=== PATIENT | male | born 2000 | race Caucasian/White ===

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

== ENCOUNTER 2020-04-05 07:38 | Emergency (ER) | payer MEDICAID, SELFPAY ==
[2020-04-05 07:39] VITALS: BP 151/57; PULSE 93; RESP 17; TEMP 36.4; O2SAT 99; BMI 41.3
--- NOTE | 2020-04-05 07:59 | ED.VISSUMM ---
- ER Visit Summary Date of Service: 04/05/20 Chief Complaint: Flea bites History of Present Illness: The patient is a [address] Phan. He reports that his dog has fleas and he is in the process of treating it. He states that he has bites to his face, neck, and arms that began 2 days ago. They itch. There is no pain. He has not taken anything for this. He denies any shortness of breath or other complaints. Physical Examination: Vitals: Stable. Afebrile. General: Well-nourished and well-developed. Head: Normocephalic atraumatic. Neck: Supple, no lymphadenopathy. No JVD. Nontender. Cardiovascular: Regular rate and rhythm. No murmurs. Respiratory: No respiratory distress. Clear to auscultation bilaterally. Abdominal: Soft, nontender, nondistended, normal bowel sounds. No guarding, rebound, or peritoneal signs. Back: Nontender. Extremities: Nontender, no edema. Skin: Multiple papules over the right side of his forehead with soft tissue swelling. There is no erythema. He has multiple excoriated papules to his upper extremities with soft tissue swelling. There is no surrounding erythema, induration, or fluctuance. No evidence of infection.. Neurologic: Alert and oriented ?3. Cranial nerves II through XII are intact. Normal strength and sensation. Psych: Normal affect. Emergency Department Course and Treatment: Patient was treated with Benadryl and prednisone. Treatment Plan: Patient will be discharged with Zyrtec and prednisone. Instructed to follow-up his primary care physician 1 to 2 days for another exam. He does understand that if he does not treat his dog that this will be a recurrent allergic reaction. Return to the emergency department for any worsening symptoms. Disposition: To home in improved and stable condition. Impression: 1. Localized allergic reaction to flea bites. This note was generated with [employer] dictation software. It may contain incorrect words, spelling, and punctuation that were not noted in review of the chart prior to signing ED Disposition - Plan for ED Patient: Instructions: ED Allergic Reaction Local Other Prescriptions: Prednisone [Deltasone] 60 mg PO DAILY #15 tablet Cetirizine HCl [Zyrtec] 10 mg PO DAILY #14 capsule Referrals: Nini Phan MD [Primary Care Provider] - 1-2 Days if not improving
== END 2020-04-05 08:38 | disposition home or self-care (01) ==
LOC: ED 08:07
PROVIDERS: Emergency Provider Emergency Medicine; PCP Pediatrics
DX: T78.40XA Allergy, unspecified, initial encounter (principal); S00.86XA Insect bite (nonvenomous) of other part of head, initial encounter; S10.96XA Insect bite of unspecified part of neck, initial encounter; S40.862A Insect bite (nonvenomous) of left upper arm, initial encounter; S40.861A Insect bite (nonvenomous) of right upper arm, initial encounter; W57.XXXA Bitten or stung by nonvenomous insect and other nonvenomous arthropods, initial encounter; Y93.9 Activity, unspecified; Y92.9 Unspecified place or not applicable; Y99.9 Unspecified external cause status; G43.909 Migraine, unspecified, not intractable, without status migrainosus; J45.909 Unspecified asthma, uncomplicated; Z72.0 Tobacco use
CPT/HCPCS: 99282

== ENCOUNTER 2021-02-26 18:34 | Emergency (ER) | payer MEDICAID, SELFPAY ==
[2021-02-26 18:36] VITALS: BP 123/67; PULSE 85; RESP 16; TEMP 36.6; O2SAT 98; BMI 37.8
--- NOTE | 2021-02-26 18:56 | RAD_ITS ---
HISTORY: Trauma, injury EXAMINATION/TECHNIQUE: XR Hand Min 3 Views: COMPARISON: None FINDINGS: BONES/JOINTS: No acute fracture or dislocation. Preservation of the joint spaces. No sclerotic or destructive changes observed. SOFT TISSUES: No soft tissue swelling or gas. No radiopaque foreign body. RAD/Hand Min 3 Views IMPRESSION: No acute bony abnormality. at 1909 Reported and signed by: Ry Powers MD Electronically Signed: Ry Powers MD at 19:07 EDT Tel , Service support ,
--- NOTE | 2021-02-26 21:29 | EX.ED.UPPERE ---
HPI History of Present Illness Chief Complaint: Upper Extremity Injury Informant: patient Occured/Mechanism Comment: Twisted while wrestling with his brother Onset/Context/Timing Onset: Today Context: Sudden Onset Timing: Continuous Quality of Pain: Burning and Stabbing Location: Right hand Worsened by: Movement Relieved by: Nothing Associated Symptoms Associated Symptoms: Negative for Parasthesia and Weakness Narrative Narrative: Patient presents with right hand injury that occurred today while wrestling with his brother. Patient states that he twisted his hand. Patient denies feeling any snapping or popping sensation. Patient describes the pain as burning and stabbing. Patient states the pain is worse with movement. Patient states nothing helps with the pain. Patient denies any paresthesias or weakness. Patient denies any other injuries. PFSH PFSH Home Medications NK 02/26/21 [History Last Taken Unknown] Allergy/AdvReac Type Severity Reaction Status Date / Time amoxicillin trihydrate Allergy Hives Verified 02/26/21 18:35 [From Augmentin] Penicillins Allergy Hives Verified 02/26/21 18:35 potassium clavulanate Allergy Hives Verified 02/26/21 18:35 [From Augmentin] Surgical History (Updated 02/26/21 @ 23:[address] Christiano Wilson DO) History of tonsillectomy Social History Smoking Status: Current every day smoker tobacco type: cigarettes ROS ROS ED Constitutional Constitutional ED: Denies chills or fever(s) Eyes Eyes: Denies blurry vision or change in vision ENT ENT ED: Denies rhinorrhea or sore throat Cardiovascular Cardiovascular: Denies chest pain or palpitations Respiratory/Chest Respiratory/Chest: Denies cough or dyspnea Gastrointestinal Gastrointestinal: Denies nausea or vomiting Genitourinary Genitourinary ED: Denies dysuria or hematuria Musculoskeletal Musculoskeletal: Denies back pain or neck pain Integumentary Denies abscess or rash Neurologic Neurologic: Denies headache(s) or weakness Allergic/Immunologic Allergic/Immunologic ED: Denies mouth swelling or urticaria EXAM Physical Exam Const Vital Signs: 02/26/21 18:36 Temperature 97.9 F Temperature Source Temporal Pulse Rate 85 Respiratory Rate 16 Blood Pressure 123/67 H Blood Pressure Mean 85 Pulse Ox 98 Oxygen Delivery Method Room Air Positive well nourished, well developed and obese General Appearance ED: well developed Nutritional Appearance: obese HEENT Reports moist mucous membranes normocephalic and atraumatic Neck full ROM Extremity Extremity Narrative: There is tenderness over the right hand over the third and fourth metacarpal areas. There is some mild edema. There is no ecchymosis. There is no deformity. There is no bony crepitance or step-off. There is just slightly limited range of motion in the right wrist and fingers. Radial pulses are equal bilateral. Capillary refill was less than 2 seconds in all digits. Strength is 5/5 in the radial, median, and ulnar areas. Sensation was intact to light touch in the radial, median, and ulnar areas. Neuro oriented x3, CN's II-XII intact bilaterally, moves all extremities, no focal motor deficits and no sensory deficits noted Sensorium / Orientation: alert Psych mental status grossly normal MDM MDM MDM Narrative Medical decision making narrative: X-rays of the right hand were obtained. There are 3 views. On my interpretation, there is no acute fracture or dislocation. There is no soft tissue swelling. Radiologist also interpreted the x-rays and agrees. Patient was given a Velcro wrist splint. Patient was instructed to ice and elevate the right hand. Patient was instructed to take Tylenol or ibuprofen as needed for pain. Patient was instructed to follow-up with his primary care physician in 5 to 7 days. Patient understood and was agreeable with the plan. All questions were answered. Radiography Diagnostic Testing: Radiology Impression Hand X-Ray 02/26/21 18:56 IMPRESSION: No acute bony abnormality. at 1909 Reported and signed by: Ry Powers MD Electronically Signed: Ry Powers MD at 19:07 EDT Tel , Service support , Discharge Plan Triage Chief Complaint: Upper Extremity Injury ED Provider: Christiano Wilson Dx/Rx/DC Orders Clinical Impression: Contusion of right hand, initial encounter Instructions: ED Hand Contusion Prescriptions: No Action NK RF: 0 Stand Alone Forms: ED Work / School Excuse Primary Care Provider: Nini Phan Referrals: Nini Phan MD [Primary Care Provider] - 5-7 Days Disposition Disposition: Home, Self Care Discharge Date/Time: 02/26/21 22:00
[2021-02-26 23:07] VITALS: RESP 16
== END 2021-02-26 22:00 | disposition home or self-care (01) ==
PROVIDERS: Emergency Provider Emergency Medicine; PCP Pediatrics
DX: S60.221A Contusion of right hand, initial encounter (principal); X58.XXXA Exposure to other specified factors, initial encounter; Y93.72 Activity, wrestling; Y92.9 Unspecified place or not applicable; Y99.9 Unspecified external cause status; E66.9 Obesity, unspecified; F17.210 Nicotine dependence, cigarettes, uncomplicated
CPT/HCPCS: 73130; 99283

== ENCOUNTER 2022-08-31 18:04 | Emergency (ER) | payer MEDICAID, SELFPAY ==
[2022-08-31 18:04] VITALS: BP 140/87; PULSE 91; RESP 18; TEMP 37.8; O2SAT 98; BMI 38.9
--- NOTE | 2022-08-31 18:56 | EX.ED.GENINJ ---
HPI History of Present Illness Chief Complaint: Bite Detail of Chief Complaint: Cat bite to left hand Informant: patient Narrative Narrative: Patient presents emergency department with cat bite to his left hand. Patient states that he helped a friend remove some stray cats out of his friend's basement they were trying to get to the friend's cat who was in heat. Patient was bitten on the left hand this morning around 8 AM. Patient went to urgent care and was prescribed antibiotics for the cat bite but was told that he needed to come to the ER to get rabies vaccine. Cancer not known and unknown if these are immunized. PFSH PFSH Home Medications NK 02/26/21 [History Last Taken Unknown] Allergy/AdvReac Type Severity Reaction Status Date / Time amoxicillin trihydrate Allergy Hives Verified 08/31/22 18:06 [From Augmentin] Penicillins Allergy Hives Verified 08/31/22 18:06 potassium clavulanate Allergy Hives Verified 08/31/22 18:06 [From Augmentin] Surgical History History of tonsillectomy Social History Smoking Status: Current every day smoker tobacco type: cigarettes ROS ROS ED Review of Systems ROS Unobtainable: other Constitutional Constitutional ED: Reports lethargy; Denies chills, fever(s), sweats or weight loss Eyes Eyes: Denies blurry vision, change in vision or diplopia ENT ENT ED: Denies rhinorrhea or sore throat Cardiovascular Cardiovascular: Denies chest pain, orthopnea or racing heartbeat Respiratory/Chest Respiratory/Chest: Denies cough, dyspnea, dyspnea on exertion, orthopnea or sputum Gastrointestinal Gastrointestinal: Denies abdominal pain, diarrhea, nausea or vomiting Genitourinary Genitourinary ED: Denies dysuria, hematuria or urinary frequency Musculoskeletal Musculoskeletal: Reports other Details: Left hand puncture wounds from cat bite ; Denies arthralgias, back pain, myalgias or neck pain Integumentary Denies abscess, Abrasions or rash Neurologic Neurologic: Denies headache(s) or weakness Psychiatric Psychiatric: Denies anxiety, depression or suicidal thoughts Endocrine Endocrinology: Denies polydipsia, polyphagia or polyuria Hematologic/Lymphatic Hematologic/Lymphatic: Denies easy bleeding, easy bruising or lymphadenopathy Allergic/Immunologic Allergic/Immunologic ED: Denies mouth swelling, tongue swelling or urticaria EXAM Physical Exam Const Vital Signs: 08/31/22 18:04 Temperature 100.1 F H Temperature Source Temporal Pulse Rate 91 Respiratory Rate 18 Blood Pressure 140/87 H Blood Pressure Mean 104 Pulse Ox 98 Oxygen Delivery Method Room Air Positive well nourished and well developed General Appearance ED: well developed and NAD HEENT Reports TM's clear and moist mucous membranes normocephalic and atraumatic; Negative for trauma or tenderness Tympanic Membrane ED: Yes TM's clear Eyes PERRL and EOMs intact bilaterally General Eye ED: Negative for pale conjunctiva or scleral icterus Neck no lymphadenopathy, supple and no JVD General: Negative for tenderness Chest Wall inspection of chest normal and palpation of chest normal Chest: Negative for tenderness Resp normal respiratory effort and clear to auscultation bilaterally Effort and Inspection: Negative for respiratory distress or pain with movement Auscultation: Negative for rhonchi, wheezes or diminished lung sounds Cardio regular rate, regular rhythm, S1 normal heart sound, S2 normal heart sound and no murmurs Peripheral Pulses: pulses 2+ throughout GI normal to inspection, nondistended, normoactive bowel sounds, soft to palpation, non-tender, non-distended and no masses Back/Spine no CVA tenderness and no thoracic nor lumbar tenderness Extremity Extremity Narrative: Left hand-patient has small puncture wound to the dorsum of the fourth and fifth MCP joints. He has multiple abrasions to the volar aspects of the digits. He has good range of motion flexion extension of all digits. Neurovascularly intact. General Extremety ED: Negative for edema General Extremity: Negative for edema Neuro oriented x3, CN's II-XII intact bilaterally, no sensory deficits noted and gait normal Sensorium / Orientation: awake, alert, oriented to person, oriented to place and oriented to time Motor Exam: strength 5/5 throughout and strength abnormal Psych mental status grossly normal Skin no rashes or lesions noted and no wounds MDM MDM MDM Narrative Medical decision making narrative: Patient presents with cat bite to left hand related to an unknown stray cat. Patient had an x-ray of his left hand that showed no fractures or foreign bodies within the wounds. Patient was given tetanus immunoglobulin and vaccine. I injected 5 cc into the bite wounds over the dorsum of the hand and fingers. Patient will return for follow-up rabies shots as instructed by nursing staff. Patient to continue with his antibiotics and advised to return if increasing pain, redness, swelling, purulent drainage from the wounds, or condition should worsen anyway. Radiography Diagnostic Testing: Clinical Impression(s) from Imaging Studies Hand X-Ray 08/31/22 19:17 IMPRESSION: Negative. Electronically Signed: Yany Kilgore MD at 20:15 EST Reading Location ID and State: [id number] / Tel , Service support , Discharge Plan Triage Chief Complaint: Bite ED Provider: Jeffrey Dodson Dx/Rx/DC Orders Clinical Impression: Cat bite, Need for rabies vaccination Instructions: ED Cat Bite Prescriptions: No Action NK Primary Care Provider: Nini Phan Referrals: Nini Phan MD [Primary Care Provider] - 3-5 Days Disposition Disposition: Home, Self Care
--- NOTE | 2022-08-31 19:17 | RAD_ITS ---
INDICATION: injury EXAMINATION/TECHNIQUE: X-RAY - LEFT XR Hand Min 3 Views 3 VIEWS COMPARISON: None. FINDINGS: No acute fracture or dislocation. No destructive bone changes. Joint spaces are well-maintained. Normal alignment. Soft tissues are unremarkable. No radiopaque foreign body or soft tissue gas. RAD/Hand Min 3 Views IMPRESSION: Negative. Electronically Signed: Yany Kilgore MD at 20:15 EST Reading Location ID and State: [id number] / Tel , Service support ,
[2022-08-31] MEDS: Rabies Immune Globulin/PF 300 UNIT/ML, 1 ML VIAL 1800 UNIT IM (20:39)
[2022-08-31] MEDS: Rabies Immune Globulin 150 UNITS/ML 900 UNITS IM (20:39)
[2022-08-31] MEDS: Rabies Vaccine,Human Diploid 2.5 UNITS Vial IM (20:51)
== END 2022-08-31 21:12 | disposition home or self-care (01) ==
PROVIDERS: Emergency Provider Emergency Medicine; PCP Pediatrics; Visit Provider Emergency Medicine
DX: S61.452A Open bite of left hand, initial encounter (principal); Z20.3 Contact with and (suspected) exposure to rabies; Z23 Encounter for immunization; W55.01XA Bitten by cat, initial encounter; Y92.018 Other place in single-family (private) house as the place of occurrence of the external cause; F17.210 Nicotine dependence, cigarettes, uncomplicated
CPT/HCPCS: 73130; 90375; 90675; 96372; 99283

== ENCOUNTER 2022-09-03 13:28 | Outpatient (CLI) | payer MEDICAID, SELFPAY ==
[2022-09-03 13:54] VITALS: BP 134/91; PULSE 82; BMI 38.9
[2022-09-03] MEDS: Rabies Vaccine,Human Diploid 2.5 UNITS Vial IM (14:10)
== END 2022-09-03 14:48 | disposition home or self-care (01) ==
PROVIDERS: PCP Pediatrics
DX: Z23 Encounter for immunization (principal)
CPT/HCPCS: 90675; 96372

== ENCOUNTER 2022-09-08 13:56 | Outpatient (CLI) | payer MEDICAID, SELFPAY ==
[2022-09-08 13:57] VITALS: BP 118/93; PULSE 82; RESP 18; TEMP 37.1; O2SAT 97; BMI 40.1
[2022-09-08] MEDS: Rabies Vaccine,Human Diploid 2.5 UNITS Vial IM (14:30)
== END 2022-09-08 14:56 | disposition home or self-care (01) ==
LOC: ED 14:57
PROVIDERS: PCP Pediatrics; Visit Provider Emergency Medicine
DX: Z23 Encounter for immunization (principal)
CPT/HCPCS: 90675; 96372

== ENCOUNTER 2022-09-15 14:14 | Outpatient (CLI) | payer MEDICAID, SELFPAY ==
[2022-09-15 14:15] VITALS: BP 118/94; PULSE 87; RESP 18; TEMP 36.6; O2SAT 97; BMI 38.5
[2022-09-15] MEDS: Rabies Vaccine,Human Diploid 2.5 UNITS Vial IM (14:43)
== END 2022-09-15 14:54 | disposition home or self-care (01) ==
PROVIDERS: PCP Pediatrics
DX: Z23 Encounter for immunization (principal)
CPT/HCPCS: 90675; 96372

== ENCOUNTER 2023-11-22 18:43 | Emergency (ER) | payer MEDICAID, SELFPAY ==
[2023-11-22 18:45] VITALS: BP 130/92; PULSE 102; RESP 16; TEMP 37.1; O2SAT 99; BMI 39.0
--- NOTE | 2023-11-22 19:03 | CT_ITS ---
STUDY: CT SOFT TISSUE NECK WITH CONTRAST REASON FOR EXAM: Male, 23 years old. Pain, difficulty swallowing RADIATION DOSAGE (If Supplied By Facility): CTDIvol = ( 17.95 ) mGy, DLP = ( 601.00 ) mGycm TECHNIQUE: The patient was scanned in a multi-detector CT scanner. High resolution transaxial imaging was performed following intravenous administration of IV 75mL Isovue-370. Sagittal and coronal images were reconstructed. Individualized dose optimization techniques were used for this CT. COMPARISON: None. FINDINGS: Normal bilateral parotid glands. Normal bilateral manager loan spaces. Normal bilateral parapharyngeal spaces. Normal bilateral carotid spaces. Normal bilateral sublingual and submandibular glands and spaces. Normal visualized nasopharynx. Normal retropharyngeal space. Normal perivertebral space. There is enlargement of the bilateral faucial tonsils. The visualized tongue, tongue base and oropharynx are normal. There are enlarged jugular lymph nodes measuring up to 2.7 cm. There are enlarged submandibular lymph nodes measuring up to 2.5 cm. There is no demonstrated solid or cystic mass lesion. There is no abnormal contrast enhancement. Normal epiglottis, bilateral vallecula and hypopharynx. The pre-epiglottic and paraglottic adipose spaces are normal. Normal visualized bilateral piriform sinuses, aryepiglottic folds, vocal cords, and arytenoid-cricoid articulations. Normal subglottic trachea. Normal bilateral lobes of the thyroid gland. Normal visualized pulmonary apices. Normal visualized paranasal sinuses. Normal visualized cervical spine. CT/Soft Tissue Neck WITH Contrast IMPRESSION: Enlarged tonsils. No abscess or fluid collection. Enlarged cervical lymph nodes. Electronically Signed: Johnny Cutler MD at 20:10 EDT ,
--- NOTE | 2023-11-22 19:05 | EDS_ITS ---
HPI History of Present Illness Chief Complaint: Sore Throat Narrative Narrative: 23-year-old male who denies significant past medical history states that his having continued throat pain. His symptoms began last Wednesday, approximately 8 days ago. He went to urgent care the following day and was diagnosed with strep throat. They started him on antibiotics and gave him something for nausea. He states he has almost completed 10 days of the antibiotic but still has pain in his throat that is worse with swallowing. He may have had intermittent fevers. PFSH PFSH Home Medications cephalexin 500 mg capsule 500 mg PO BID 11/22/23 [History Last Taken Unknown] lidocaine HCl 2 % mucosal solution (Lidocaine Viscous) 10 ml mucous membrane TID #100 mL 11/22/23 [Rx Last Taken Unknown] ondansetron 4 mg disintegrating tablet 4 mg PO Q8H PRN PRN nausea/vomiting 11/22/23 [History Last Taken Unknown] Allergy/AdvReac Type Severity Reaction Status Date / Time amoxicillin trihydrate Allergy Hives Verified 11/22/23 18:46 [From Augmentin] Penicillins Allergy Hives Verified 11/22/23 18:46 potassium clavulanate Allergy Hives Verified 11/22/23 18:46 [From Augmentin] Surgical History History of tonsillectomy Social History Smoking Status: Current every day smoker tobacco type: cigarettes ROS ROS ED ROS Narrative Constitutional: Intermittent fever, no chills. Decreased appetite. HEENT: Positive sore throat. Worse with swallowing no neck pain. No loss of vision. No rhinorrhea. Cardiovascular: No chest pain. No palpitations. No pedal edema. Respiratory: No cough, no shortness of breath. Abdominal: No abdominal pain. No nausea. No vomiting. Genitourinary: No dysuria. No hematuria. Musculoskeletal: No myalgias. No arthralgias. Neurologic: No headaches. No dizziness. No lightheadedness. Skin: No rash. No change in color. Psychiatric: No depression. No anxiety. EXAM Physical Exam Narrative Exam Narrative: Afebrile. Vital signs noted. HEENT: Normocephalic. Atraumatic. PERRL, EOMI. Neck soft and supple. No point tenderness or step off. Airway patent. Positive pharyngeal erythema with blistering of soft palate. Positive enlarged tonsils. No meningismus. Positive cervical lymphadenopathy bilaterally Cardiovascular: Regular rate and rhythm with intermittent tachycardia. No murmurs, rubs, or gallops appreciated. Respiratory: No tachypnea. Lungs clear to auscultation bilaterally. Gastrointestinal: Abdomen soft, nontender, with normoactive bowel sounds. No rebound or guarding. Neurological: Awake. Alert. Nonfocal, nonlateralizing. Skin: No rash. Normal color. No pallor. Musculoskeletal: No pedal edema. Full range of motion extremities. Const Vital Signs: 11/22/23 18:45 Temperature 98.8 F Temperature Source Temporal Pulse Rate 102 H Respiratory Rate 16 Blood Pressure 130/92 H Blood Pressure Mean 104 Pulse Ox 99 Oxygen Delivery Method Room Air MDM MDM MDM Narrative Medical decision making narrative: Concern is for tonsillar abscess given the fact that he is already a week into his illness and has been on antibiotics. I reviewed his chart and he is on cephalexin twice a day. He was administered lidocaine/viscous lidocaine orally which did help him. I reviewed his laboratory work from today and he has normal white count of 8.5, hemoglobin 16.4 and platelet count normal at 310. Sodium slightly low at 132 with chloride 96 with mild dehydration. He was bolused normal saline 1 L intravenously. Glucose appropriately elevated at 94. I reviewed the radiology report of the CT of the soft tissue of the neck with contrast and there is no evidence of tonsillar abscess but there is tonsillar enlargement. At this point in time he was administered Decadron 10 mg intravenously prior to discharge. I wrote him prescription for 100 mL of viscous lidocaine to take 10 mL at a time up to 3 times a day to help with his throat pain. He will drink plenty of oral fluids and finish his antibiotic treatment. He will follow-up with his primary care provider and he was also referred to otolaryngology. I feel he can be discharged safely home with follow-up. Return instructions to the emergency department were reviewed. Disposition is discharged home in stable condition. History & Record Review Discussion w/independent historian: Patient Lab Data Attestation: I reviewed the patient's lab results. Labs: Laboratory Results - last 24 hr 11/22/23 19:13 WBC 8.5 RBC 5.78 Hgb 16.4 Hct 47.4 MCV 82.0 MCH 28.4 MCHC 34.6 RDW Std Deviation 34.9 L RDW Coeff of Janee 11.8 Plt Count 310 MPV 9.5 Immature Gran % (Auto) 0.600 Neut % (Auto) 61.4 Lymph % (Auto) 26.4 Mcclain % (Auto) 9.9 Eos % (Auto) 0.6 Baso % (Auto) 1.1 H Absolute Neuts (auto) 5.2 Absolute Lymphs (auto) 2.24 Nucleated RBC % 0 Differential Comment SCANNED Sodium 132 L Potassium 3.5 Chloride 96 L Carbon Dioxide 27.0 Anion Gap 9 BUN 21 H Creatinine 1.15 Estim Creat Clear Calc 147.68 Est GFR (MDRD) Af Amer 101 Est GFR (MDRD) Non-Af 83 BUN/Creatinine Ratio 18.3 Glucose 94 Calcium 10.1 Radiography Diagnostic Testing: Clinical Impression(s) from Imaging Studies Soft Tissue Neck CT 11/22/23 19:03 IMPRESSION: Enlarged tonsils. No abscess or fluid collection. Enlarged cervical lymph nodes. Electronically Signed: Johnny Cutler MD at 20:10 EDT , Discharge Plan Triage Chief Complaint: Sore Throat ED Provider: Uzair Whitley Dx/Rx/DC Orders Clinical Impression: Acute streptococcal tonsillitis, Throat pain Instructions: ED Pharyngitis, Strep (Confirmed) Prescriptions: New lidocaine HCl [Lidocaine Viscous] 2 % solution 10 ml mucous membrane TID MDD 30 ml Qty: 100 0RF No Action cephalexin 500 mg capsule 500 mg PO BID ondansetron 4 mg tablet,disintegrating 4 mg PO Q8H PRN PRN (Reason: nausea/vomiting) Primary Care Provider: Care Physician,No Primary Referrals: Nini Phan MD [Non-Staff] - 3-5 Days Kemal Lam MD [Med Staff - Active Staff] - As soon as possible Activity Restrictions/Additional Instructions: Finish all your antibiotics. You may take viscous lidocaine 10 mL up to 3 times a day but no more than 30 mL/day. Follow-up with ENT and/or your primary care provider. Disposition Disposition: Home, Self Care
[2023-11-22] MEDS: 0.9% Normal Saline (1000mL) 1,000 ML 999 ML IV (19:14)
[2023-11-22 19:19] LABS: Absolute Lymphocyte Count 2.24 X10^3/uL (0.83-4.51); Absolute Neutrophil Count 5.2 X10^3/uL (2.0-7.7); Basophil# 0.09 X10^3/uL; Basophil% 1.1 % (0-1); Eosinophil# 0.05 X10^3/uL; Eosinophils% 0.6 % (0-5); Hematocrit 47.4 % (40-54); Hemoglobin 16.4 g/dL (13.0-16.5); Lymphocyte # 2.24 X10^3/ul (0.83-4.51); Lymphocyte % 26.4 % (19-41); Mean Corp Hgb Conc 34.6 g/dL (32-36); Mean Corpuscular Hgb 28.4 pg (27.0-32.0); Mean Platelet Vol. 9.5 fl (6.2-12.0); Monocyte# 0.84 X10^3/uL; Monocyte% 9.9 % (0-10); NRBC Flagged by Analyzer 0 % (0-5); Neutrophil # 5.23 X10^3/uL (2.7-7.7); Neutrophil % 61.4 % (47-70); POSITIVE MORPHOLOGY YES; Platelet Count 310 K/mm3 (150-450); RBC Distribution Width CV 11.8 % (11.6-14.6); RBC Distribution Width SD 34.9 fl (35.1-43.9); Red Blood Count 5.78 M/mm3 (4.6-6.2); White Blood Count 8.5 K/mm3 (4.4-11.0)
[2023-11-22 19:39] LABS: Anion Gap 9 (5-15); BUN 21 mg/dL (7-18); BUN/Creat Ratio 18.3 RATIO (10-20); Calcium,Total 10.1 mg/dL (8.5-10.1); Chloride 96 mmol/L (98-107); Creatinine, Serum 1.15 mg/dL (0.70-1.30); EST Glomerular Filtration Rate 83 mL/min (>60); Est Glom Filt Rate - Afr Amer 101 mL/min (>60); Estimated Creatinine Clearance 147.68 ml/min; Glucose 94 mg/dL (74-106); Potassium 3.5 mmol/L (3.5-5.1); Sodium Level 132 mmol/L (136-145)
[2023-11-22 19:44] LABS: Differential Indicated SCAN CRITERIA MET
[2023-11-22 20:08] LABS: Differential Comment SCANNED
[2023-11-22 21:25] VITALS: BP 134/72; PULSE 89; RESP 18; TEMP 36.7; O2SAT 100
== END 2023-11-22 21:25 | disposition home or self-care (01) ==
PROVIDERS: Emergency Provider Emergency Medicine; Visit Provider Emergency Medicine
DX: J03.00 Acute streptococcal tonsillitis, unspecified (principal); F17.210 Nicotine dependence, cigarettes, uncomplicated; E86.0 Dehydration
CPT/HCPCS: 70491; 80048; 85025; 96360; 96361; 99283; J7030; Q9967; A4216